=== PATIENT | female | born 1945 | race Caucasian/White ===

== ENCOUNTER → 2016-06-29 | Outpatient (CLI) | payer MEDICARE ==
[~2016-06-29] MED LIST: LIPI20TA PO; TYLE325T5 PO
--- NOTE | 2016-06-30 16:30 | REP ---
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 Comparisons: Comparison CT study of the chest May 11, 2016. TECHNIQUE: 84 minutes following the intravenous injection of a 7.0 mCi dose of F-18 FDG, three-dimensional PET scintigraphy is acquired from the skull base to the proximal thighs. Triplanar noncontrast CT scanning is acquired through the same anatomic range for attenuation correction, and image registration with scan parameters optimized to minimize radiation exposure to the patient. PET scintigraphy and CT datasets were fused and displayed on a workstation with multiplanar and projection display capability. PET/CT Findings: The known large right upper lobe mass is hypermetabolic. Heterogeneous hypermetabolic uptake is seen throughout it. Maximum standard uptake value within the lesion is up to 46. There is hypermetabolic precarinal adenopathy, maximum SUV value in this sharmin focus is 11.4. There is hypermetabolic subcarinal adenopathy with maximum SUV value 20.2. There is a right mid hilar sharmin hypermetabolic uptake maximum SUV value 17.5. There is also hypermetabolic sharmin uptake in the right superior mediastinum adjacent to the esophagus with maximum standard uptake value 19.7. There is faintly increased uptake in a left thyroid nodule with maximum standard uptake value 3.7. Hypermetabolic uptake is noted in the pulmonary nodule seen in the left upper lobe. Standard uptake value within this small nodule is 3.1. There is a small left adrenal hypermetabolic mass consistent with metastasis. Maximum standard uptake value within this 1-1/2 cm lesion is 36.6. No abnormal skeletal hypermetabolic uptake is seen. Impression: Findings consistent with locally advanced bronchogenic malignancy with right hilar, subcarinal, precarinal, right superior mediastinal metastatic adenopathy. There is a contralateral left upper lobe nodule which is small and also hypermetabolic. There is a small hypermetabolic left adrenal mass consistent with a metastatic lesion as well. Equivocal uptake is seen in the left thyroid. Signed by Scotty Nix MD 06/30/2016 09:47 P
== END ==
LOC: M RAD 14:39
PROVIDERS: ATTEND Internal Medicine Pulmonary Disease
DX: C34.11 Malignant neoplasm of upper lobe, right bronchus or lung (principal)
CPT/HCPCS: 78815; A9552

== ENCOUNTER → 2016-07-06 | Outpatient (REF) | payer MEDICARE | LOC: M LAB REF 13:00 | PROVIDERS: ATTEND Internal Medicine Medical Oncology | DX: C34.11 Malignant neoplasm of upper lobe, right bronchus or lung (principal) ==

== ENCOUNTER → 2016-07-13 | Outpatient (CLI) | payer MEDICARE ==
--- NOTE | 2016-07-14 08:17 | REP ---
MRI BRAIN WITHOUT AND WITH CONTRAST: HISTORY: Lung carcinoma. CONTRAST: ProHance 12 mL. Areas of increased signal intensity on T2-weighted images are present in the periventricular and subcortical white matter and guillermo. This represents small vessel ischemic disease. There is no intraparenchymal hemorrhage, infarct, mass or midline shift. There is no abnormal enhancement. The ventricular system and cortical sulci are dilated consistent with minimal volume loss. There is no extracerebral collection. The sinuses are clear. IMPRESSION: 1. Small vessel ischemic disease. 2. Minimal volume loss. Signed by Eyad Deal MD 07/14/2016 08:21 A
== END ==
LOC: M RAD 16:40
PROVIDERS: ATTEND Internal Medicine Medical Oncology
DX: C34.81 Malignant neoplasm of overlapping sites of right bronchus and lung (principal); I73.9 Peripheral vascular disease, unspecified
CPT/HCPCS: 70553; A9576

== ENCOUNTER → 2016-08-11 | Outpatient (REF) | payer MEDICARE | LOC: M LAB REF 17:17 | PROVIDERS: ATTEND Internal Medicine Medical Oncology | DX: C34.90 Malignant neoplasm of unspecified part of unspecified bronchus or lung (principal); Z79.899 Other long term (current) drug therapy ==

== ENCOUNTER 2016-08-23 11:27 | Emergency (ER) | payer MEDICARE ==
[~2016-08-23] VITALS: Ht 172.7 cm; Wt 59.0 kg
[2016-08-23] MEDS ORDERED: NS 1,000 ML IV ONE (11:45)
[2016-08-23 12:16] LABS: BASO % 0.4 % (0.0-1.0); EOS # 0.2 K/mm3 (0.0-0.50); EOS % 1.2 % (0.0-3.0); LARGE UNSTAINED CELL # 0.1 K/mm3 (0.0-0.4); LARGE UNSTAINED CELL % 0.9 % (0.0-4.0); LYMPH # 1.9 K/mm3 (1.5-4.5); LYMPH % 13.5 % (24.0-44.0); MEAN CORPUSCULAR HEMOGLOBIN 28.7 pg (27.0-33.0); MEAN CORPUSCULAR HGB CONC 32.2 g/dl (32.0-36.5); MEAN CORPUSCULAR VOLUME 89.2 fl (80.0-96.0); MONO # 0.8 K/mm3 (0.0-0.8); MONO % 6.3 % (0.0-5.0); NEUTROPHILS # 10.2 K/mm3 (1.8-7.7); NEUTROPHILS % 77.7 % (36.0-66.0); PLATELET COUNT, AUTOMATED 342 k/mm3 (150-450); RED CELL DISTRIBUTION WIDTH 14.1 % (11.5-14.5); WHITE BLOOD COUNT 13.1 K/mm3 (4.0-10.0)
--- NOTE | 2016-08-23 12:28 | REP ---
CHEST, TWO VIEWS: HISTORY: Cough. COMPARISON: 05/04/2016 A mass is present in the right upper lobe. The mass measures 5.9 cm in transverse by 8.3 cm in cephalocaudal dimensions and is slightly decreased in size compared to the previous study. Increased density is present superior and lateral to the mass representing the postobstructive atelectasis or infiltrate. The left lung is clear. The heart is normal in size. The pulmonary vasculature is normal in appearance. The bony structure is intact. IMPRESSION: 1. Right upper lobe mass decreased in size compared to the previous study. 2. There is increased density superior and lateral to the mass consistent with postobstructive atelectasis or infiltrate. Signed by Eyad Deal MD 08/23/2016 12:29 P
[2016-08-23 13:44] LABS: ALBUMIN 3.3 GM/DL (3.2-5.2); ALBUMIN/GLOBULIN RATIO 0.92 (1.00-1.93); ALKALINE PHOSPHATASE 115 U/L (45-117); ALT/SGPT 21 U/L (12-78); ANION GAP 6 MEQ/L (8-16); AST/SGOT 15 U/L (15-37); BILIRUBIN,DIRECT 0.1 MG/DL (0.0-0.2); BILIRUBIN,TOTAL 0.4 MG/DL (0.2-1.0); BLOOD UREA NITROGEN 17 MG/DL (7-18); CALCIUM LEVEL 10.2 MG/DL (8.8-10.2); CARBON DIOXIDE LEVEL 30 MEQ/L (21-32); CHLORIDE LEVEL 103 MEQ/L (98-107); CREATININE FOR GFR 0.63 MG/DL (0.55-1.02); GLOMERULAR FILTRATION RATE > 60.0 (>39); GLUCOSE, FASTING 87 MG/DL (83-110); POTASSIUM SERUM 4.6 MEQ/L (3.5-5.1); SODIUM LEVEL 139 MEQ/L (136-145); TOTAL PROTEIN 6.9 GM/DL (6.4-8.2)
[2016-08-23] MEDS ORDERED: LEVO750T33 PO (14:26)
[2016-08-23] MEDS ORDERED: LevoFLOXacin 750 MG TABLET PO ONE (14:30)
[2016-08-23 15:00] VITALS: BP 172/76
--- NOTE | 2016-08-24 10:30 | ECGEPIP ---
Stationary ECG Study [facility] - ED Test Date: 2016-08-23 Pat Name: JOEL URIBE Department: Room: - Gender: F Asset Protection Assistant: emilee : 1945 Requested By: Romulo Montoya Order Number: [id number] Reading MD: Eugene Calvin Measurements Intervals [place] Rate: 68 P: 68 IA: 145 QRS: 18 QRSD: 88 T: 64 QT: 374 QTc: 400 Interpretive Statements SINUS RHYTHM POSSIBLE LEFT ATRIAL ENLARGEMENT NO PRIORS Electronically Signed On 08-24-2016 10:30:06 EST by Eugene Calvin
== END 2016-08-23 15:33 | disposition home or self-care (01) ==
LOC: M ED 11:55
DX: R50.9 Fever, unspecified (principal); R09.81 Nasal congestion; Z91.040 Latex allergy status; Z88.2 Allergy status to sulfonamides; Z88.8 Allergy status to other drugs, medicaments and biological substances

== ENCOUNTER → 2016-11-03 | Outpatient (REF) | payer MEDICARE ==
[~2016-11-03] MED LIST changes: +LEVO750T33 PO
== END ==
LOC: M LAB REF 16:36
PROVIDERS: ATTEND Internal Medicine Medical Oncology
DX: C34.90 Malignant neoplasm of unspecified part of unspecified bronchus or lung (principal); Z79.899 Other long term (current) drug therapy

== ENCOUNTER → 2016-12-15 | Outpatient (REF) | payer MEDICARE ==
[~2016-12-15] MED LIST changes: +ALPR0.25 PO; +AMLO10TA PO; +COLA100C3 PO; +CYCL10TA PO; +HYDR-3713 PO; +HYDR10T PO
[2016-12-15 17:42] LABS: FREE T4 1.09 NG/DL (0.76-1.46)
== END ==
LOC: M LAB REF 16:27
PROVIDERS: ATTEND Internal Medicine Medical Oncology
DX: C34.90 Malignant neoplasm of unspecified part of unspecified bronchus or lung (principal); E07.9 Disorder of thyroid, unspecified

== ENCOUNTER 2016-12-21 18:32 | Observation (INO) | payer MEDICARE ==
[~2016-12-21] VITALS: Ht 172.7 cm; Wt 76.3 kg
[~2016-12-21 18:32] MED LIST changes: -ALPR0.25 PO; -AMLO10TA PO; -COLA100C3 PO; -CYCL10TA PO; -HYDR-3713 PO; -HYDR10T PO; +LEVO750T13 PO; -LEVO750T33 PO
[2016-12-21] MEDS ORDERED: CYCL10TA PO (18:44)
[2016-12-21] MEDS ORDERED: HYDR-643 PO (18:44)
[2016-12-21] MEDS: MORPHINE 2 MG/ML 1ML SYRINGE IV PRN ×4 (19:46→22:59)
[2016-12-21] MEDS: NS 1,000 ML IV SCH ×2 (19:47→21:33)
[2016-12-21 19:49] LABS: INR 1.04
[2016-12-21 19:52] LABS: BASO # 0.1 K/mm3 (0.0-0.2); BASO % 0.8 % (0.0-1.0); EOS # 0.3 K/mm3 (0.0-0.50); LARGE UNSTAINED CELL # 0.2 K/mm3 (0.0-0.4); LARGE UNSTAINED CELL % 1.9 % (0.0-4.0); LYMPH # 2.9 K/mm3 (1.5-4.5); LYMPH % 32.1 % (24.0-44.0); MEAN CORPUSCULAR HEMOGLOBIN 30.5 pg (27.0-33.0); MEAN CORPUSCULAR HGB CONC 33.4 g/dl (32.0-36.5); MEAN CORPUSCULAR VOLUME 91.3 fl (80.0-96.0); MONO # 0.5 K/mm3 (0.0-0.8); MONO % 5.8 % (0.0-5.0); NEUTROPHILS # 4.8 K/mm3 (1.8-7.7); NEUTROPHILS % 55.4 % (36.0-66.0); PLATELET COUNT, AUTOMATED 275 k/mm3 (150-450); RED CELL DISTRIBUTION WIDTH 14.4 % (11.5-14.5); WHITE BLOOD COUNT 8.6 K/mm3 (4.0-10.0)
[2016-12-21 20:11] LABS: ALBUMIN 3.7 GM/DL (3.2-5.2); ALBUMIN/GLOBULIN RATIO 1.03 (1.00-1.93); ALKALINE PHOSPHATASE 106 U/L (45-117); ALT/SGPT 19 U/L (12-78); ANION GAP 5 MEQ/L (8-16); AST/SGOT 15 U/L (15-37); BILIRUBIN,DIRECT 0.1 MG/DL (0.0-0.2); BILIRUBIN,TOTAL 0.3 MG/DL (0.2-1.0); BLOOD UREA NITROGEN 12 MG/DL (7-18); CALCIUM LEVEL 10.3 MG/DL (8.8-10.2); CARBON DIOXIDE LEVEL 26 MEQ/L (21-32); CHLORIDE LEVEL 109 MEQ/L (98-107); CREATININE FOR GFR 0.63 MG/DL (0.55-1.02); GLOMERULAR FILTRATION RATE > 60.0 (>39); GLUCOSE, FASTING 103 MG/DL (83-110); SODIUM LEVEL 140 MEQ/L (136-145); TOTAL PROTEIN 7.3 GM/DL (6.4-8.2)
[2016-12-21] MEDS ORDERED: ISOVUE-370 76% 100ML VIAL (Q9967) As Ordered ONE (20:45)
--- NOTE | 2016-12-21 21:22 | REP ---
Clinical: Abdominal pain. Technique: Axial contrast enhanced images from the lung bases to the pubic symphysis using 100 ml Isovue 370 intravenous contrast material with coronal and sagittal re-formations. Findings: Lung bases are clear. Visualized heart and pericardium normal. Liver, spleen, pancreas, gallbladder, bilateral adrenal glands and kidneys are normal. The enteric system is without obstruction or acute inflammatory process. Colonic and sigmoid diverticulosis noted without acute diverticulitis. Pelvis demonstrates normal bladder and evidence for prior hysterectomy. No ascites. No free air. No adenopathy. No obvious abdominal pelvic mass lesion. Atherosclerotic changes to the vasculature noted without aneurysm or dissection. Musculoskeletal structures demonstrate degenerative change without focal osseous abnormality. Impression: 1. No acute abdominopelvic pathology appreciated. 2. Colonic diverticulosis without acute diverticulitis. Signed by Charlie Maier MD 12/21/2016 09:14 P
[2016-12-21] MEDS ORDERED: hydrALAZINE INJ 20 MG/ML VIAL IV STA ×2 (21:27→22:36)
[2016-12-21] MEDS ORDERED: HYDR-3713 PO (21:40)
[2016-12-21] MEDS ORDERED: AMLO10TA PO (21:40)
[2016-12-21] MEDS ORDERED: COLA100C5 PO (21:43)
[2016-12-21] MEDS ORDERED: amLODIPine 10 MG TAB PO ONE (22:00)
[2016-12-21] MEDS ORDERED: MIRALAX *UNIT DOSE* 17GM PACKET PO ONE (23:15)
[2016-12-22] MEDS ORDERED: ONDANSETRON 4MG/2ML VIAL (J2405) IV ONE
[2016-12-22] MEDS ORDERED: ALPR0.25 PO (00:01)
--- NOTE | 2016-12-22 00:12 | HPEPDOC ---
General Date of Admission Primary Care Physician: KYE DE LOS SANTOS MD [facility] Chief Complaint The patient is a 71-year-old female admitted with a reason for visit of Lower Abd Pain. Source: Patient, Family Exam Limitations: No limitations Timing/Duration: 24 hours Severity: Moderate History of Present Illness Ms. England is a 71 y/o with past medical history of lung cancer diagnosed in Apr 2016., the pt. states that she has been receiving Keytruda since Apr 2016. She states that one day ago she experienced the onset of right lower quadrant abdominal pain that was sharp in nature with some radiation to her right side and low back. The pt states that when she came to the Ed to be evaluated for this, they noted her to have a high blood pressure. She denies CP, or SOB and denies a history of HTN. She did have some nausea earlier today but denies vomiting, denies fever or chills and denies pain with urination/defecation nor blood in urine or stool. Home Medications Scheduled Amlodipine Besylate (Norvasc) 10 Mg Tab, 10 MG PO DAILY Atorvastatin Calcium (Lipitor) 20 Mg Tab, 40 MG PO DAILY, (Reported) Docusate Sodium (Colace) 100 Mg Cap, 100 MG PO BID Levofloxacin Hemihydrate (Levofloxacin) 750 Mg Tab, 750 MG PO DAILY Scheduled PRN Acetaminophen (Tylenol) 325 Mg Tab, 325 MG PO Q4H PRN for PAIN, (Reported) Acetaminophen/Hydrocodone (Hydrocodone/Acetaminophen 5-325 mg) 1 Tab Tab, 1 TAB PO Q6H PRN for PAIN MDD 4 Cyclobenzaprine HCl (Cyclobenzaprine HCl) 10 Mg Tab, 10 MG PO TID PRN for SPASMS , (Reported) Hydroxyzine HCl (Hydroxyzine HCl) 10 Mg Tab, 10 MG PO TID PRN for ITCHING, ( Reported) Allergies Coded Allergies: Latex (Verified Allergy, Unknown, 09/30/14) Moxifloxacin (Verified Allergy, Unknown, 09/30/14) Prednisone (Verified Allergy, Unknown, 09/30/14) Sulfa Antibiotics (Verified Allergy, Unknown, 09/30/14) Past Medical History Medical History lung cancer dx apr 2016-receiving keytruda Surgical History hysterectomy Family History Significant Family History: No pertinent family hx Social History * Smoker: former Smoker, current smoker (4-6 cigs a day) Alcohol: Denies Drugs: denies Psychosocial History: No pertinent psych hx Review of Symptoms Constitutional: Reports: Malaise, Denies: Chills, Fever Eyes: Denies: Pain, Vision change ENT: Denies: Head Aches Skin: Denies: Rash, Lesions Pulmonary: Denies: Dyspnea, Cough, Pleuritic Chest Pain Cardiovascular: Denies: Chest Pain, Palpitations, Orthopnea Gastrointestinal: Reports: Nausea, Vomiting, Abdominal Pain (RLQ), Denies: Diarrhea, Constipation Genitourinary: Denies: Dysuria, Frequency, Incontinence Neurological: Denies: Weakness, Numbness Psych: Reports: Mood Normal Physical Examination General Exam: Positive: Alert, Moderate Distress Eye Exam: Positive: Conjunctiva & lids normal, Negative: Sclera icteric Neck Exam: Positive: Supple Chest Exam: Positive: Clear to auscultation, Normal air movement, Negative: Rales, Rhonchi, Wheezing Heart Exam: Positive: Rate Normal, Normal S1, Normal S2, Murmurs (systolic) Telemetry: Positive: No significant arrhythmia Abdomen Exam: Positive: Normal bowel sounds, Soft, Tenderness (RLQ), Negative: Hepatospenomegaly, Mass, Hernia Extremity Exam: Negative: Clubbing, Cyanosis, Edema Vital Signs Vital Signs Date Time Temp Pulse Resp B/P (MAP) Pulse Ox O2 Delivery O2 Flow Rate FiO2 12/21/16 23:10 18 97 12/21/16 22:44 188/79 12/21/16 21:43 70 12/21/16 18:33 97.5 Room Air Laboratory Data Labs 24H Laboratory Tests 2 12/21/16 19:30: White Blood Count 8.6, Red Blood Count 4.83, Hemoglobin 14.7, Hematocrit 44.1, Mean Corpuscular Volume 91.3, Mean Corpuscular Hemoglobin 30.5, Mean Corpuscular Hemoglobin Concent 33.4, Red Cell Distribution Width 14.4, Platelet Count 275, Neutrophils (%) (Auto) 55.4, Lymphocytes (%) (Auto) 32.1, Monocytes ( %) (Auto) 5.8H, Eosinophils (%) (Auto) 4.0H, Basophils (%) (Auto) 0.8, Neutrophils # (Auto) 4.8, Lymphocytes # (Auto) 2.9, Monocytes # (Auto) 0.5, Eosinophils # (Auto) 0.3, Basophils # (Auto) 0.1, Large Unclassified Cells % 1.9 , Large Unclassified Cells # 0.2, Prothrombin Time 13.7, Prothromb Time International Ratio 1.04, Anion Gap 5L, Glomerular Filtration Rate > 60.0, Lactic Acid Level 0.9, Calcium Level 10.3H, Aspartate Amino Transf (AST/SGOT) 15 , Alanine Aminotransferase (ALT/SGPT) 19, Alkaline Phosphatase 106, Total Bilirubin 0.3, Direct Bilirubin 0.1, Total Creatine Kinase 41, Creatine Kinase MB 1.0, Creatine Kinase MB Relative Index 2.43, Troponin I < 0.02, Total Protein 7.3, Albumin 3.7, Albumin/Globulin Ratio 1.03, Lipase 204 12/21/16 20:52: Urine Appearance CLEAR, Urine Color STRAW, Urine pH 6.0, Urine Specific [place] 1.005, Urine Protein NEGATIVE, Urine Glucose (UA) NEGATIVE, Urine Ketones NEGATIVE, Urine Urobilinogen 0.2, Urine Bilirubin NEGATIVE, Urine Leukocyte Esterase NEGATIVE, Urine Blood 1+H, Urine Nitrite NEGATIVE, Urine WBC (Auto) 0, Urine RBC (Auto) 5H, Urine Hyaline Casts (Auto) 0, Urine Bacteria (Auto) NEGATIVE, Urine Squamous Epithelial Cells 1, Urine Amorphous Sediment SMALLH, Urine Sperm (Auto) CBC/BMP Laboratory Tests 12/21/16 19:30 Red Blood Count 4.83, Mean Corpuscular Volume 91.3, Mean Corpuscular Hemoglobin 30.5, Mean Corpuscular Hemoglobin Concent 33.4, Red Cell Distribution Width 14.4 , Neutrophils (%) (Auto) 55.4, Lymphocytes (%) (Auto) 32.1, Monocytes (%) (Auto ) 5.8 H, Eosinophils (%) (Auto) 4.0 H, Basophils (%) (Auto) 0.8, Neutrophils # ( Auto) 4.8, Lymphocytes # (Auto) 2.9, Monocytes # (Auto) 0.5, Eosinophils # (Auto ) 0.3, Basophils # (Auto) 0.1 Problems (1) Abdominal pain Status: Acute Response to Treatment: Stable Problem Text: pt states morphine is not helping her pain, will schedule dilaudid therapy CT abdomen neg. for acute pathology-showed some stool and diverticulosis UA showed some RBC, otherwise neg. for infection Zofran for nausea Will consider consulting surgeon for further evaluation of intractable abdominal pain of unknown origin at this time No WBC, no fever. Repeat labs in AM. Fluid therapy NS, pt made NPO (2) DVT prophylaxis Status: Acute Response to Treatment: Stable Problem Text: SCD TEDS Plan / VTE VTE Prophylaxis Ordered?: Yes GME ATTESTATION GME ATTESTATION My preceptor for this patient encounter was physically present in the building during the encounter and was fully available. As needed, all aspects of the patient interview, examination, medical decision making process, and medical care plan development were reviewed and approved by the preceptor. Preceptor is aware and concurs with the plan as stated in the body of this note and will attest to such by his/her cosignature. NADIA VELASQUEZ DO Dec 22, 2016 00:12
[2016-12-22] MEDS ORDERED: CYCLOBENZAPRINE 10 MG TAB PO PRN (00:15)
[2016-12-22] MEDS ORDERED: ALPRAZolam 0.25 MG TAB PO PRN (00:15)
[2016-12-22] MEDS: HYDROmorphone HCL 1 MG/ML SYRINGE (J1170) IV PRN ×5 (00:26→20:17)
[2016-12-22 02:15] VITALS: BP 158/68
[2016-12-22] MEDS: NS 1,000 ML IV SCH ×3 (02:41→18:50)
[2016-12-22 06:00] VITALS: BP 133/63
[2016-12-22 06:28] LABS: BASO % 0.6 % (0.0-1.0); EOS # 0.2 K/mm3 (0.0-0.50); EOS % 3.4 % (0.0-3.0); LARGE UNSTAINED CELL # 0.1 K/mm3 (0.0-0.4); LARGE UNSTAINED CELL % 1.8 % (0.0-4.0); LYMPH # 2.2 K/mm3 (1.5-4.5); LYMPH % 31.5 % (24.0-44.0); MEAN CORPUSCULAR HEMOGLOBIN 31.4 pg (27.0-33.0); MEAN CORPUSCULAR VOLUME 92.2 fl (80.0-96.0); MONO # 0.4 K/mm3 (0.0-0.8); MONO % 6.5 % (0.0-5.0); NEUTROPHILS # 3.7 K/mm3 (1.8-7.7); NEUTROPHILS % 56.2 % (36.0-66.0); PLATELET COUNT, AUTOMATED 247 k/mm3 (150-450); RED CELL DISTRIBUTION WIDTH 14.4 % (11.5-14.5); WHITE BLOOD COUNT 6.6 K/mm3 (4.0-10.0)
[2016-12-22 06:45] LABS: ANION GAP 4 MEQ/L (8-16); BLOOD UREA NITROGEN 9 MG/DL (7-18); CALCIUM LEVEL 9.9 MG/DL (8.8-10.2); CARBON DIOXIDE LEVEL 28 MEQ/L (21-32); CHLORIDE LEVEL 111 MEQ/L (98-107); GLOMERULAR FILTRATION RATE > 60.0 (>39); GLUCOSE, FASTING 100 MG/DL (83-110); SODIUM LEVEL 143 MEQ/L (136-145)
--- NOTE | 2016-12-22 07:36 | REP ---
Clinical: Pain. Technique: Neutral and frog lateral views of the right hip. Findings: Two views of the right hip demonstrates no acute fracture dislocation. Skeletal structures, joint spaces, and surrounding soft tissues are essentially normal for age. No overt osteoarthritic degenerative changes are appreciated. Impression: Normal, age-appropriate right hip radiographs. Signed by Charlie Maier MD 12/22/2016 07:27 A
[2016-12-22] MEDS ORDERED: amLODIPine 10 MG TAB PO SCH (09:00)
[2016-12-22] MEDS ORDERED: amLODIPine 10 MG TAB PO ONE (09:00)
[2016-12-22] MEDS: ATORVASTATIN 20 MG TAB PO SCH (09:05)
[2016-12-22] MEDS ORDERED: GOLYTELY SOLN 4000 ML BTL PO ONE (10:00)
[2016-12-22] MEDS: ONDANSETRON 4MG/2ML VIAL (J2405) IV PRN ×2 (11:51→22:25)
[2016-12-22] MEDS: ACETAMINOPHEN TAB 650MG DOSE (2X325MG) PO PRN ×2 (13:11→22:27)
--- NOTE | 2016-12-22 13:37 | CR ---
DATE OF CONSULTATION: 12/22/2016 CHIEF COMPLAINT: Right lower quadrant pain. HISTORY OF PRESENT ILLNESS: The patient is a 71-year-old female who presents to the emergency room with right lower quadrant abdominal pain. This started late on Monday. It was present throughout the day on Monday. She finally came in to the emergency room complaining of this pain. Labs were normal. Vitals were normal. CT of abdomen and pelvis was also normal. However, she had difficulty with hypertension with a systolic in the 190s. Because of that, she was admitted to the medicine service. I was asked to consult based off of this lower abdominal pain that was nonspecific and to help rule out possible early appendicitis. This morning, she denies any nausea or vomiting. No fevers or chills. No problems with diarrhea or constipation. She has never had problems with blood in her stool. No pain with bowel movements or urination. No improvement of her pain with bowel movements or urination as well. No family history of colon diseases or cancers. No recent trauma. No recent illnesses. No sick contacts. No change in activity or diet. The pain is present, but it is very minimal when she is laying flat, but when she sits upright she gets a sharp stabbing pain in her right lower quadrant. She denies any history of prior colonoscopy. She has had a hysterectomy as well as a recently diagnosed lung cancer last April and she is going through therapy for that currently. PAST MEDICAL HISTORY: 1. Lung cancer. 2. Hypertension. PAST SURGICAL HISTORY: Hysterectomy. FAMILY HISTORY: Noncontributory. SOCIAL HISTORY: Smokes four to six cigarettes a day. Denies any drug or alcohol abuse. ALLERGIES: - LATEX - MOXIFLOXACIN - PREDNISONE - SULFA DRUGS HOME MEDICATIONS: Please see med record. REVIEW OF SYSTEMS: Pertinent positives and negatives in history of present illness (HPI). PHYSICAL EXAMINATION: Generally, alert and oriented times three with no acute stress. Vitals: Temperature 98.3, pulse 76, respirations 16, blood pressure 133/63, pulse oximetry 93% in room air. HEENT: Pupils equally round and react to light and accommodation. Heart: S1, S2. Regular rate and rhythm. Lungs: Clear to auscultation bilaterally. Abdomen: Soft. Mild tenderness to palpation right lower quadrant over the area of McBurney's point. There is some slight thickening of the tissue in this area. No discrete masses identified. No hernias identified. Bowel sounds positive. Extremities: No clubbing, cyanosis or edema. LABORATORY DATA: White count yesterday 8.6 and down to 6.6 today, hemoglobin 14.8, platelets 247, potassium 4, calcium 9.9. IMAGING STUDIES: CT of abdomen and pelvis was negative for any acute abdominal pelvic pathology. Colonic diverticulosis without diverticulitis. ASSESSMENT/PLAN: The patient is a 71-year-old female with nonspecific right lower quadrant abdominal pain. It does not appear to be appendicitis by history or exam. The pain is more positional. It is likely musculoskeletal in nature. She was lifting a lot of gallon jugs of water this weekend with a lot of lifting and twisting. She may have caused some lower abdominal muscle strain. Recommendation at this time is to place back on a clear liquid diet and use Tylenol and Motrin as needed for pain. Also recommend getting up and ambulating, stretching the area. Since she has not had a colonoscopy to rule out anything intraluminally, would recommend we get the colonoscopy as an inpatient since she is already here. I have discussed this with her. We will plan on bowel prep today and colonoscopy tomorrow. As long as colonoscopy is negative, will likely recommend discharge home and follow-up outpatient as needed.
--- NOTE | 2016-12-22 15:20 | IPNPDOC ---
Text Note Date of Service The patient was seen on 12/22/16. NOTE Subjective: Pt states she has RLQ sharp pain. Was lifting water jugs with twisting motions. States pain is sharp, non radiating. No dysuria. No back pain. Objective: Vitals: (see below) General: No acute distress, laying comfortably in bed. HEENT: Moist mucous membranes. Neck: No JVD or lymphadenopathy Cardiac: RRR, No murmurs Pulm: Clear to auscultation b/l. No wheezing, rhonchi Abd: Mild TTP RLQ. No rebound/guarding/rigidity. ND + BS Ext: No edema or cyanosis. Strength 5/5 BUE and BLE. No reproducible pain on internal/external rotation of RLE. Distal pulses intact. Labs (see below) Images: Right hip 12/21/16 Impression: Normal, age-appropriate right hip radiographs. CT Abd/pelvis 12/21/16 Impression: 1. No acute abdominopelvic pathology appreciated. 2. Colonic diverticulosis without acute diverticulitis. Assessment/Plan 1. Abd pain - likely musculoskeletal in nature given history. CT Abd /pelvis negative. Labs relatively normal. Scheduled for colonoscopy tomorrow with Dr. Crane. UA negative. 2. Lung cancer on da, last dose last . Oupt oncology f/u. 3. H/o Ovarian cysts 4. H/o HYST. DVT prophy: SCDs VS,Fishbone, I+O VS, Fishbone, I+O Laboratory Tests 12/21/16 19:30 Red Blood Count 4.83, Mean Corpuscular Volume 91.3, Mean Corpuscular Hemoglobin 30.5, Mean Corpuscular Hemoglobin Concent 33.4, Red Cell Distribution Width 14.4 , Neutrophils (%) (Auto) 55.4, Lymphocytes (%) (Auto) 32.1, Monocytes (%) (Auto ) 5.8 H, Eosinophils (%) (Auto) 4.0 H, Basophils (%) (Auto) 0.8, Neutrophils # ( Auto) 4.8, Lymphocytes # (Auto) 2.9, Monocytes # (Auto) 0.5, Eosinophils # (Auto ) 0.3, Basophils # (Auto) 0.1 12/22/16 06:07 Red Blood Count 4.72, Mean Corpuscular Volume 92.2, Mean Corpuscular Hemoglobin 31.4, Mean Corpuscular Hemoglobin Concent 34.0, Red Cell Distribution Width 14.4 , Neutrophils (%) (Auto) 56.2, Lymphocytes (%) (Auto) 31.5, Monocytes (%) (Auto ) 6.5 H, Eosinophils (%) (Auto) 3.4 H, Basophils (%) (Auto) 0.6, Neutrophils # ( Auto) 3.7, Lymphocytes # (Auto) 2.2, Monocytes # (Auto) 0.4, Eosinophils # (Auto ) 0.2, Basophils # (Auto) 0.0, Calcium Level 9.9 Vital Signs Date Time Temp Pulse Resp B/P (MAP) Pulse Ox O2 Delivery O2 Flow Rate FiO2 12/22/16 15:04 16 12/22/16 10:00 Room Air 97.0 12/22/16 06:00 98.3 76 133/63 (86) 93 I&O- Last 24 Hours up to 6 AM 12/22/16 05:59 Intake Total 1000 ml Output Total 0 ml Balance 1000 ml BERNIE SLAUGHTER MD Dec 22, 2016 15:20
[2016-12-22] MEDS ORDERED: BISACODYL ENEMA 10 MG/30 ML PR ONE (18:45)
[2016-12-22 22:00] VITALS: BP 158/68
[2016-12-23] MEDS: HYDROmorphone HCL 1 MG/ML SYRINGE (J1170) IV PRN ×3 (01:45→11:02)
[2016-12-23] MEDS: NS 1,000 ML IV SCH ×2 (04:27→18:13)
[2016-12-23 06:00] VITALS: BP 144/65
[2016-12-23 06:39] LABS: BASO % 0.6 % (0.0-1.0); EOS # 0.2 K/mm3 (0.0-0.50); LARGE UNSTAINED CELL # 0.1 K/mm3 (0.0-0.4); LARGE UNSTAINED CELL % 1.9 % (0.0-4.0); LYMPH # 1.2 K/mm3 (1.5-4.5); MEAN CORPUSCULAR HEMOGLOBIN 31.3 pg (27.0-33.0); MEAN CORPUSCULAR VOLUME 92.2 fl (80.0-96.0); MONO # 0.3 K/mm3 (0.0-0.8); MONO % 6.5 % (0.0-5.0); NEUTROPHILS # 3.5 K/mm3 (1.8-7.7); PLATELET COUNT, AUTOMATED 211 k/mm3 (150-450); RED CELL DISTRIBUTION WIDTH 14.1 % (11.5-14.5); WHITE BLOOD COUNT 5.3 K/mm3 (4.0-10.0)
--- NOTE | 2016-12-23 07:23 | ECGEPIP ---
Stationary ECG Study [facility] - ED Test Date: 2016-12-21 Pat Name: JOEL URIBE Department: Room: [place] [address] Gender: F Assistant Manager Retail: sienna : 1945 Requested By: NIC REBOLLEDO Order Number: [id number] Reading MD: Damaris Marquez Measurements Intervals [place] Rate: 58 P: 74 RI: 154 QRS: 29 QRSD: 101 T: 66 QT: 413 QTc: 407 Interpretive Statements SINUS BRADYCARDIA DECREASED RATE 08/23/16 Electronically Signed On 12-23-2016 7:22:41 EDT by Damaris Marquez
[2016-12-23 07:39] LABS: ANION GAP 7 MEQ/L (8-16); BLOOD UREA NITROGEN 6 MG/DL (7-18); CALCIUM LEVEL 9.6 MG/DL (8.8-10.2); CARBON DIOXIDE LEVEL 25 MEQ/L (21-32); CHLORIDE LEVEL 109 MEQ/L (98-107); CREATININE FOR GFR 0.46 MG/DL (0.55-1.02); GLOMERULAR FILTRATION RATE > 60.0 (>39); GLUCOSE, FASTING 84 MG/DL (83-110); POTASSIUM SERUM 3.6 MEQ/L (3.5-5.1); SODIUM LEVEL 141 MEQ/L (136-145)
[2016-12-23] MEDS ORDERED: FLEET ENEMA PR ONE ×2 (08:00→10:00)
[2016-12-23] MEDS: ONDANSETRON 4MG/2ML VIAL (J2405) IV PRN (09:30)
[2016-12-23] MEDS: ATORVASTATIN 20 MG TAB PO SCH (09:31)
[2016-12-23] MEDS: ACETAMINOPHEN TAB 650MG DOSE (2X325MG) PO PRN (11:34)
--- NOTE | 2016-12-23 15:00 | IPNPDOC ---
Text Note Date of Service The patient was seen on 12/23/16. NOTE Subjective: Abd pain resolved. Objective: Vitals: (see below) General: No acute distress, laying comfortably in bed. HEENT: Moist mucous membranes. Neck: No JVD or lymphadenopathy Cardiac: RRR, No murmurs Pulm: Clear to auscultation b/l. No wheezing, rhonchi Abd:NT/ ND + BS Ext: No edema or cyanosis. Strength 5/5 BUE and BLE. No reproducible pain on internal/external rotation of RLE. Distal pulses intact. Labs (see below) Images: Right hip 12/21/16 Impression: Normal, age-appropriate right hip radiographs. CT Abd/pelvis 12/21/16 Impression: 1. No acute abdominopelvic pathology appreciated. 2. Colonic diverticulosis without acute diverticulitis. Assessment/Plan 1. Abd pain - likely musculoskeletal in nature given history. CT Abd /pelvis negative. Labs relatively normal. Scheduled for colonoscopy today with Dr. Crane. UA negative. ? Related to Keyruda side effect as it has been shown to cause non specific abd pain 13%. 2. Lung cancer on Keyruda, last dose last . Oupt oncology f/u. 3. H/o Ovarian cysts 4. H/o HYST. DVT prophy: SCDs VS,Fishbone, I+O VS, Fishbone, I+O Laboratory Tests 12/23/16 06:18 Red Blood Count 4.48, Mean Corpuscular Volume 92.2, Mean Corpuscular Hemoglobin 31.3, Mean Corpuscular Hemoglobin Concent 34.0, Red Cell Distribution Width 14.1 , Neutrophils (%) (Auto) 67.0 H, Lymphocytes (%) (Auto) 21.0 L, Monocytes (%) ( Auto) 6.5 H, Eosinophils (%) (Auto) 3.0, Basophils (%) (Auto) 0.6, Neutrophils # (Auto) 3.5, Lymphocytes # (Auto) 1.2 L, Monocytes # (Auto) 0.3, Eosinophils # (Auto) 0.2, Basophils # (Auto) 0.0, Calcium Level 9.6 Vital Signs Date Time Temp Pulse Resp B/P (MAP) Pulse Ox O2 Delivery O2 Flow Rate FiO2 12/23/16 11:46 16 12/23/16 08:15 95 Room Air 12/23/16 06:00 98.9 75 144/65 (91) 12/22/16 10:00 97.0 I&O- Last 24 Hours up to 6 AM 12/23/16 06:00 Intake Total 3500 ml Output Total 1600 ml Balance 1900 ml BERNIE SLAUGHTER MD Dec 23, 2016 15:00
[2016-12-23] MEDS ORDERED: diphenhydrAMINE INJ 50MG/ML VIAL (J1200) IM ONE (15:30)
[2016-12-23] MEDS ORDERED: PROPOFOL 200 MG/20 ML VIAL As Ordered ONE (16:16)
[2016-12-23] MEDS ORDERED: LIDOCAINE 2% INJ 100 MG/5 ML SDV (FOR ANES.) As Ordered ONE (16:16)
--- NOTE | 2016-12-23 16:36 | ROOR ---
Patient Name: Lora England Procedure Date: 12/23/2016 4:10 PM Date of : 1945 Age: 71 Room: [facility] Gender: Female Note Status: Finalized Procedure: Colonoscopy Indications: Abdominal pain in the right lower quadrant Providers: DO Sohan Perry MD: Ezra Muhammad MD Requesting Provider: Medicines: Propofol per Anesthesia Complications: No immediate complications. Estimated blood loss: Minimal. Procedure: Pre-Anesthesia Assessment: - Prior to the procedure, a History and Physical was performed, and patient medications and allergies were reviewed. The patient is competent. The risks and benefits of the procedure and the sedation options and risks were discussed with the patient. All questions were answered and informed consent was obtained. Patient identification and proposed procedure were verified by the physician, the nurse, the anesthesiologist and the downstream biomanufacturing technician in the endoscopy suite. Mental Status Examination: alert and oriented. Airway Examination: normal oropharyngeal airway and neck mobility. Respiratory Examination: clear to auscultation. CV Examination: normal. Prophylactic Antibiotics: The patient does not require prophylactic antibiotics. Prior Anticoagulants: The patient has taken no previous anticoagulant or antiplatelet agents. ASA Grade Assessment: II - A patient with mild systemic disease. After reviewing the risks and benefits, the patient was deemed in satisfactory condition to undergo the procedure. The anesthesia plan was to use monitored anesthesia care (MAC). Immediately prior to administration of medications, the patient was re-assessed for adequacy to receive sedatives. The heart rate, respiratory rate, oxygen saturations, blood pressure, adequacy of pulmonary ventilation, and response to care were monitored throughout the procedure. The physical status of the patient was re-assessed after the procedure. The Colonoscope was introduced through the anus and advanced to the cecum, identified by appendiceal orifice and ileocecal valve. The colonoscopy was performed without difficulty. The patient tolerated the procedure well. Findings: Multiple small and large-mouthed diverticula were found in the sigmoid colon. A 5 mm polyp was found in the sigmoid colon. The polyp was hyperplastic. The polyp was removed with a hot snare. Resection and retrieval were complete. Four hyperplastic polyps were found in the recto-sigmoid colon. The polyps were less than 5 mm in size. These polyps were removed with a cold biopsy forceps. Resection and retrieval were complete. The exam was otherwise without abnormality on direct and retroflexion views. Impression: - Diverticulosis in the sigmoid colon. - One 5 mm polyp in the sigmoid colon, removed with a hot snare. Resected and retrieved. - Four less than 5 mm polyps at the recto-sigmoid colon, removed with a cold biopsy forceps. Resected and retrieved. - The examination was otherwise normal on direct and retroflexion views. Recommendation: - Return patient to hospital [facility] for ongoing care. - Resume regular diet. Bladimir Crane DO 12/23/2016 4:36:06 PM This report has been signed electronically. Number of Addenda: 0 Note Initiated On: 12/23/2016 4:10 PM Estimated Blood Loss: Estimated blood loss was minimal.
[2016-12-23 22:00] VITALS: BP 158/66
[2016-12-23] MEDS: KETOROLAC 30 MG/ML VIAL (J1885) IV PRN (22:35)
[2016-12-24] MEDS: NS 1,000 ML IV SCH (02:17)
[2016-12-24 05:47] LABS: BASO % 0.5 % (0.0-1.0); EOS # 0.1 K/mm3 (0.0-0.50); EOS % 1.8 % (0.0-3.0); LARGE UNSTAINED CELL # 0.1 K/mm3 (0.0-0.4); LARGE UNSTAINED CELL % 1.3 % (0.0-4.0); LYMPH # 0.8 K/mm3 (1.5-4.5); LYMPH % 14.2 % (24.0-44.0); MEAN CORPUSCULAR HEMOGLOBIN 30.7 pg (27.0-33.0); MEAN CORPUSCULAR HGB CONC 34.2 g/dl (32.0-36.5); MEAN CORPUSCULAR VOLUME 89.9 fl (80.0-96.0); MONO # 0.3 K/mm3 (0.0-0.8); MONO % 6.6 % (0.0-5.0); NEUTROPHILS # 3.8 K/mm3 (1.8-7.7); NEUTROPHILS % 75.6 % (36.0-66.0); PLATELET COUNT, AUTOMATED 213 k/mm3 (150-450)
[2016-12-24 06:00] VITALS: BP 180/68
[2016-12-24 06:02] LABS: ANION GAP 6 MEQ/L (8-16); BLOOD UREA NITROGEN 5 MG/DL (7-18); CALCIUM LEVEL 9.5 MG/DL (8.8-10.2); CARBON DIOXIDE LEVEL 26 MEQ/L (21-32); CHLORIDE LEVEL 106 MEQ/L (98-107); CREATININE FOR GFR 0.49 MG/DL (0.55-1.02); GLOMERULAR FILTRATION RATE > 60.0 (>39); GLUCOSE, FASTING 91 MG/DL (83-110); POTASSIUM SERUM 3.4 MEQ/L (3.5-5.1); SODIUM LEVEL 138 MEQ/L (136-145)
[2016-12-24] MEDS: KETOROLAC 30 MG/ML VIAL (J1885) IV PRN (06:16)
[2016-12-24] MEDS ORDERED: POTASSIUM CHLORIDE 10 MEQ SR TABLET PO ONE (07:45)
[2016-12-24] MEDS ORDERED: BENA2CRE3 EXT (09:00)
[2016-12-24] MEDS ORDERED: AMLO25TA PO (09:02)
[2016-12-24 09:34] VITALS: BP 180/68
[2016-12-24] MEDS: ATORVASTATIN 20 MG TAB PO SCH (09:34)
--- NOTE | 2016-12-24 12:51 | DS.PDOC ---
Discharge Summary General Date of Admission Dec 21, 2016 at 18:33 Date of Discharge 12/24/16 Attending Physician: BERNIE SLAUGHTER MD Specialist/Consultants Involve: STACIE QUESADA DO Discharge Summary PROCEDURES PERFORMED DURING STAY: Colonoscopy ADMITTING/DISCHARGE DIAGNOSES: 1. Musculoskeletal abdominal pain 2. Lung cancer on [facility] 3. Allergic rash possibly secondary to Dilaudid 4. History of ovarian cysts 5. History of hysterectomy COMPLICATIONS/CHIEF COMPLAINT: Abdominal Pain. HISTORY OF PRESENT ILLNESS/HOSPITAL COURSE: . This is a 71-year-old male past history of lung cancer on [facility] who presents complaining of right lower quadrant pain. Patient was carrying some heavy water jugs with twisting motions. Respiratory admission. Patient then started to develop right lower quadrant sharp pain. Patient did have a CAT scan and pelvis which was relatively unremarkable. Patient was evaluated by surgery and subsequently had a colonoscopy with a few polyps noted that were sent for biopsy. Patient was cleared by surgery for discharge home. Patient was also noted to have the rash on her right buttock as right inner thigh which is improving since yesterday. Dilaudid was discontinued. Questionable whether this was the cause. The patient was started on Benadryl cream and advised to come to the ED if the rash does worsen. Prior to discharge patient was thought to have elevated blood pressure, and started on amlodipine. Patient is to follow-up with her primary care physician regarding her hypertension as well. DISCHARGE MEDICATIONS: Please see below. Vitals: (see below) General: No acute distress, laying comfortably in bed. HEENT: Moist mucous membranes. Neck: No JVD or lymphadenopathy Cardiac: RRR, No murmurs Pulm: Clear to auscultation b/l. No wheezing, rhonchi Abd:NT/ ND + BS Ext: No edema or cyanosis. Strength 5/5 BUE and BLE. No reproducible pain on internal/external rotation of RLE. Distal pulses intact. Right buttock/ right thigh with mild blotchy red rash. Non blanching, non pruritic. Female manager database administration present. ALLERGIES: Please see below. PHYSICAL EXAMINATION ON DISCHARGE: LABORATORY DATA: Please see below. IMAGING: Right hip 12/21/16 Impression: Normal, age-appropriate right hip radiographs. CT Abd/pelvis 12/21/16 Impression: 1. No acute abdominopelvic pathology appreciated. 2. Colonic diverticulosis without acute diverticulitis. PROGNOSIS: Fair ACTIVITY: As tolerated. DIET: Regular DISCHARGE PLAN/DISPOSITION: 01 Home, Self-Care. DISCHARGE INSTRUCTIONS: 1. Follow-up with PCP in 1-2 weeks. Return to the ED if abdominal pain or rash worsens. DISCHARGE CONDITION: Stable. TIME SPENT ON DISCHARGE: Greater than 30 minutes. Vital Signs/I&Os Vital Signs Date Time Temp Pulse Resp B/P (MAP) Pulse Ox O2 Delivery O2 Flow Rate FiO2 12/24/16 09:34 68 180/68 12/24/16 06:00 99.5 18 95 Room Air 12/22/16 10:00 97.0 I&O- Last 24 Hours up to 6 AM 12/24/16 06:00 Intake Total 1520 ml Output Total 0 ml Balance 1520 ml Laboratory Data Labs 24H Laboratory Tests 2 12/24/16 05:36: White Blood Count 5.0, Red Blood Count 4.54, Hemoglobin 13.9, Hematocrit 40.8, Mean Corpuscular Volume 89.9, Mean Corpuscular Hemoglobin 30.7, Mean Corpuscular Hemoglobin Concent 34.2, Red Cell Distribution Width 14.0, Platelet Count 213, Neutrophils (%) (Auto) 75.6H, Lymphocytes (%) (Auto) 14.2L, Monocytes (%) (Auto) 6.6H, Eosinophils (%) (Auto) 1.8, Basophils (%) (Auto) 0.5 , Neutrophils # (Auto) 3.8, Lymphocytes # (Auto) 0.8L, Monocytes # (Auto) 0.3, Eosinophils # (Auto) 0.1, Basophils # (Auto) 0.0, Large Unclassified Cells % 1.3 , Large Unclassified Cells # 0.1, Anion Gap 6L, Glomerular Filtration Rate > 60.0, Blood Urea Nitrogen 5L, Creatinine 0.49L, Sodium Level 138, Potassium Level 3.4L, Chloride Level 106, Carbon Dioxide Level 26, Calcium Level 9.5 CBC/BMP Laboratory Tests 12/24/16 05:36 Red Blood Count 4.54, Mean Corpuscular Volume 89.9, Mean Corpuscular Hemoglobin 30.7, Mean Corpuscular Hemoglobin Concent 34.2, Red Cell Distribution Width 14.0 , Neutrophils (%) (Auto) 75.6 H, Lymphocytes (%) (Auto) 14.2 L, Monocytes (%) ( Auto) 6.6 H, Eosinophils (%) (Auto) 1.8, Basophils (%) (Auto) 0.5, Neutrophils # (Auto) 3.8, Lymphocytes # (Auto) 0.8 L, Monocytes # (Auto) 0.3, Eosinophils # (Auto) 0.1, Basophils # (Auto) 0.0, Calcium Level 9.5 Discharge Medications Scheduled Amlodipine Besylate (Norvasc) 2.5 Mg Tab, 2.5 MG PO DAILY Atorvastatin Calcium (Lipitor) 20 Mg Tab, 40 MG PO DAILY, (Reported) Diphenhydramine HCl (Benadryl 1-0.1 %) 30 Gm Cream, 30 GM EXT BID Apply to left buttock and left thigh. Scheduled PRN Acetaminophen (Tylenol) 325 Mg Tab, 325 MG PO Q4H PRN for PAIN, (Reported) Alprazolam (Alprazolam) 0.25 Mg Tab, 0.25 MG PO TID PRN for ANXIETY, (Reported) Cyclobenzaprine HCl (Cyclobenzaprine HCl) 10 Mg Tab, 10 MG PO TID PRN for SPASMS , (Reported) Hydroxyzine HCl (Hydroxyzine HCl) 10 Mg Tab, 10 MG PO TID PRN for ITCHING, ( Reported) Allergies Coded Allergies: Latex (Verified Allergy, Unknown, 09/30/14) Moxifloxacin (Verified Allergy, Unknown, 09/30/14) Prednisone (Verified Allergy, Unknown, 09/30/14) Sulfa Antibiotics (Verified Allergy, Unknown, 09/30/14) BERNIE SLAUGHTER MD Dec 24, 2016 12:51
== END 2016-12-24 10:20 | disposition home or self-care (01) ==
LOC: M ED 18:32 → M ED INP 18:33 → M MS5PR 12-22 02:15
PROVIDERS: ADMIT Hospitalist; ATTEND Internal Medicine
DX: R10.31 Right lower quadrant pain (principal); K57.30 Diverticulosis of large intestine without perforation or abscess without bleeding; D12.5 Benign neoplasm of sigmoid colon; C34.90 Malignant neoplasm of unspecified part of unspecified bronchus or lung; R21 Rash and other nonspecific skin eruption; I10 Essential (primary) hypertension; Z87.42 Personal history of other diseases of the female genital tract; Z79.899 Other long term (current) drug therapy; Z91.040 Latex allergy status; Z88.1 Allergy status to other antibiotic agents; Z88.2 Allergy status to sulfonamides; Z88.8 Allergy status to other drugs, medicaments and biological substances; F17.210 Nicotine dependence, cigarettes, uncomplicated
CPT/HCPCS: 36415; 45380; 45385; 73502; 74177; 80048; 80076; 81001; 82550; 82553; 83605; 83690; 84484; 85025; 85610; 88305; 93005; 93041; 96361; 96372; 96374; 96375; 96376; 99284; G0378; J1170; J1200; J1885; J2405; Q9967

== ENCOUNTER → 2017-01-05 | Outpatient (REF) | payer MEDICARE ==
[~2017-01-05] MED LIST changes: +ALPR0.25 PO; +AMLO10TA PO; +AMLO25TA PO; +BENA2CRE3 EXT; +COLA100C5 PO; +CYCL10TA PO; +HYDR-3713 PO; +HYDR-643 PO
[2017-01-05 15:14] LABS: IONIZED CALCIUM 5.6 MG/DL (4.5-5.3)
== END ==
LOC: M LAB REF 15:00
PROVIDERS: ATTEND Internal Medicine Medical Oncology
DX: C34.90 Malignant neoplasm of unspecified part of unspecified bronchus or lung (principal); E07.9 Disorder of thyroid, unspecified

== ENCOUNTER → 2017-01-26 | Outpatient (REF) | payer MEDICARE ==
[2017-01-27 08:22] LABS: THYROXINE (T4) 10.8 UG/DL (4.5-12.0)
== END ==
LOC: M LAB REF 16:19
PROVIDERS: ATTEND Internal Medicine Medical Oncology
DX: C34.90 Malignant neoplasm of unspecified part of unspecified bronchus or lung (principal); Z79.899 Other long term (current) drug therapy

== ENCOUNTER → 2017-12-05 | Outpatient (REF) | payer MEDICARE, MEDICAID ==
[2017-12-05 14:11] LABS: FREE T4 1.08 NG/DL (0.76-1.46)
== END ==
LOC: M LAB REF 13:11
DX: Z01.818 Encounter for other preprocedural examination (principal); Z51.81 Encounter for therapeutic drug level monitoring; Z79.899 Other long term (current) drug therapy
CPT/HCPCS: 84443

== ENCOUNTER → 2017-12-05 | Outpatient (REF) | payer MEDICARE, MEDICAID ==
[2017-12-05 15:52] LABS: INR 0.93; PROTHROMBIN TIME 12.5 SECONDS (12.4-14.5)
[2017-12-05 15:53] LABS: PARTIAL THROMBOPLASTIN TIME 31.6 SECONDS (26.8-37.9)
== END ==
LOC: M LAB REF 15:20
DX: Z01.818 Encounter for other preprocedural examination (principal); Z51.81 Encounter for therapeutic drug level monitoring; Z79.899 Other long term (current) drug therapy

== ENCOUNTER → 2017-12-08 | Outpatient (CLI) | payer MEDICARE, MEDICAID ==
[~2017-12-08] MED LIST changes: -ALPR0.25 PO; -AMLO10TA PO; -AMLO25TA PO; -BENA2CRE3 EXT; -COLA100C5 PO; -CYCL10TA PO; +GASTROGRAFIN SOLUTION 30ML (Q9963) As Ordered; -HYDR-3713 PO; -HYDR-643 PO; +ISOVUE-370 76% 100ML VIAL (Q9967) As Ordered; -LEVO750T13 PO; -LIPI20TA PO; -TYLE325T5 PO
== END ==
LOC: M RAD 13:22
DX: C34.90 Malignant neoplasm of unspecified part of unspecified bronchus or lung (principal); Z53.9 Procedure and treatment not carried out, unspecified reason (principal)
CPT/HCPCS: Q9963

== ENCOUNTER → 2017-12-12 | Outpatient (CLI) | payer MEDICARE, MEDICAID ==
[~2017-12-12] MED LIST changes: -GASTROGRAFIN SOLUTION 30ML (Q9963) As Ordered; -ISOVUE-370 76% 100ML VIAL (Q9967) As Ordered; +PROHANCE 279.3MG/ML 15ML VIAL (A9576) As Ordered
== END ==
LOC: M RAD 12:26
DX: Z85.118 Personal history of other malignant neoplasm of bronchus and lung (principal)
CPT/HCPCS: A9576

== ENCOUNTER → 2018-01-18 | Outpatient (CLI) | payer MEDICARE ==
[~2018-01-18] MED LIST changes: +GASTROGRAFIN SOLUTION 30ML (Q9963) As Ordered; +ISOVUE-370 76% 100ML VIAL (Q9967) As Ordered; -PROHANCE 279.3MG/ML 15ML VIAL (A9576) As Ordered
== END ==
LOC: M RAD 14:10
DX: C34.11 Malignant neoplasm of upper lobe, right bronchus or lung (principal)
CPT/HCPCS: Q9963

== ENCOUNTER 2018-02-09 11:02 | Inpatient (IN) | payer MEDICARE ==
[2018-02-09 11:37] LABS: BASO # 0.1 10^3/uL (0.0-0.2); BASO % 0.3 % (0.0-1.0); EOS # 0.2 10^3/uL (0.0-0.50); HEMATOCRIT 39.9 % (36.0-47.0); HEMOGLOBIN 13.5 g/dl (12.0-15.5); IMMATURE GRANULOCYTE % 0.6 % (0-3.0); LYMPH # 1.6 10^3/uL (1.5-4.5); LYMPH % 10.1 % (24.0-44.0); MEAN CORPUSCULAR HEMOGLOBIN 31.7 pg (27.0-33.0); MEAN CORPUSCULAR HGB CONC 33.8 g/dl (32.0-36.5); MEAN CORPUSCULAR VOLUME 93.7 fl (80.0-96.0); MONO # 1.2 10^3/uL (0.0-0.8); MONO % 7.6 % (0.0-5.0); NEUTROPHILS # 12.4 10^3/uL (1.8-7.7); NEUTROPHILS % 80.4 % (36.0-66.0); PLATELET COUNT, AUTOMATED 277 10^3/uL (150-450); RED BLOOD COUNT 4.26 10^6/uL (4.00-5.40); RED CELL DISTRIBUTION WIDTH 12.5 % (11.5-14.5); WHITE BLOOD COUNT 15.4 10^3/uL (4.0-10.0)
[2018-02-09 11:52] LABS: LACTIC ACID SEPSIS PROTOCOL 1.3 MMOL/L (0.4-2.0)
[2018-02-09 11:55] LABS: ANION GAP 9 MEQ/L (8-16); BLOOD UREA NITROGEN 12 MG/DL (7-18); CALCIUM LEVEL 10.7 MG/DL (8.8-10.2); CARBON DIOXIDE LEVEL 25 MEQ/L (21-32); CHLORIDE LEVEL 105 MEQ/L (98-107); CK-MB VALUE MASS < 1.0 NG/ML (<3.6); CPK CREATINE PHOSPHOKINASE 75 U/L (26-192); CREATININE FOR GFR 0.62 MG/DL (0.55-1.30); GLOMERULAR FILTRATION RATE > 60.0 (>39); GLUCOSE, FASTING 115 MG/DL (70-100); MB/CK RELATIVE INDEX 1.33 (< OR =4); POTASSIUM SERUM 4.5 MEQ/L (3.5-5.1); SODIUM LEVEL 139 MEQ/L (136-145); TROPONIN I < 0.02 NG/ML (< 0.10)
[2018-02-09 11:59] LABS: D-DIMER QUANT 1092.7 ng/ml (<500)
[2018-02-09] MEDS: ALBUTEROL SULFATE 2.5 MG/0.5 ML INH NEB SOLN INH (12:00)
[2018-02-09] MEDS: IPRATROPIUM 0.5MG/ALBUTEROL 2.5MG INH SOL UD 3ML (DUONEB)(J7620) NEB ×3 (12:00→20:42)
[2018-02-09 12:17] LABS: ALBUMIN 3.1 GM/DL (3.2-5.2); ALBUMIN/GLOBULIN RATIO 0.78 (1.00-1.93); ALKALINE PHOSPHATASE 105 U/L (45-117); ALT/SGPT 25 U/L (12-78); AST/SGOT 27 U/L (7-37); BILIRUBIN,DIRECT 0.1 MG/DL (0.0-0.2); BILIRUBIN,TOTAL 0.6 MG/DL (0.2-1.0); LIPASE 73 U/L (73-393); TOTAL PROTEIN 7.1 GM/DL (6.4-8.2)
[2018-02-09] MEDS ORDERED: ISOVUE-370 76% 100ML VIAL (Q9967) As Ordered (12:59)
[2018-02-09 14:33] LABS: ABG BASE EXCESS -0.9 (-2.0-2.0); ABG O2 SATURATION 98.7 % (95.0-99.0); ABG PARTIAL PRESSURE CO2 27.3 mmHg (35.0-45.0); ABG PARTIAL PRESSURE O2 107.3 mmHg (75.0-100.0); ABG STANDARD HCO3 23.7 MEQ/L (22.0-26.0); ABG TOTAL CO2 21.8 MEQ/L (23.0-31.0); ABG pH (ARTERIAL) 7.503 UNITS (7.350-7.450)
[2018-02-09] MEDS: predniSONE 10 MG TAB PO (15:30)
[2018-02-09] MEDS: LevoFLOXacin IV 500 MG in APPROPRIATE DILUENT 1 EA IV (15:57)
[2018-02-09] MEDS ORDERED: ALBUTEROL 90 MCG/ACT 8GM HFA INHALER INH (16:00)
[2018-02-09] MEDS ORDERED: ACETAMINOPHEN 325 MG TAB PO (16:00)
[2018-02-09] MEDS ORDERED: ALPRAZolam 0.25 MG TAB PO (16:00)
[2018-02-09] MEDS: TIOTROPIUM INHALER/CAPSULE (SPIRIVA) INH (16:00)
[2018-02-09] MEDS ORDERED: BISACODYL 10 MG SUPP PR (16:00)
[2018-02-09] MEDS ORDERED: hydrOXYzine 10 MG TAB PO (16:00)
[2018-02-09] MEDS: SYMBICORT 160/4.5MCG INHALER 6GM INH (20:42)
[2018-02-10] MEDS: IPRATROPIUM 0.5MG/ALBUTEROL 2.5MG INH SOL UD 3ML (DUONEB)(J7620) NEB ×5 (00:15→23:54)
[2018-02-10 05:35] LABS: HEMATOCRIT 35.9 % (36.0-47.0); MEAN CORPUSCULAR HEMOGLOBIN 30.8 pg (27.0-33.0); MEAN CORPUSCULAR HGB CONC 33.4 g/dl (32.0-36.5); MEAN CORPUSCULAR VOLUME 92.1 fl (80.0-96.0); PLATELET COUNT, AUTOMATED 287 10^3/uL (150-450); RED CELL DISTRIBUTION WIDTH 12.4 % (11.5-14.5); WHITE BLOOD COUNT 11.8 10^3/uL (4.0-10.0)
[2018-02-10 06:02] LABS: ESTIMATED AVERAGE GLUCOSE 120 MG/DL (60-110); HEMOGLOBIN A1c 5.8 %
[2018-02-10 06:11] LABS: ALBUMIN 2.7 GM/DL (3.2-5.2); ALBUMIN/GLOBULIN RATIO 0.77 (1.00-1.93); ALKALINE PHOSPHATASE 93 U/L (45-117); ALT/SGPT 32 U/L (12-78); ANION GAP 7 MEQ/L (8-16); AST/SGOT 23 U/L (7-37); BILIRUBIN,TOTAL 0.5 MG/DL (0.2-1.0); BLOOD UREA NITROGEN 13 MG/DL (7-18); CALCIUM LEVEL 10.3 MG/DL (8.8-10.2); CARBON DIOXIDE LEVEL 27 MEQ/L (21-32); CHLORIDE LEVEL 107 MEQ/L (98-107); CREATININE FOR GFR 0.61 MG/DL (0.55-1.30); GLOMERULAR FILTRATION RATE > 60.0 (>39); GLUCOSE, FASTING 122 MG/DL (70-100); MAGNESIUM LEVEL 2.1 MG/DL (1.8-2.4); SODIUM LEVEL 141 MEQ/L (136-145); THYROID STIMULATING HORMONE 0.112 uIU/ML (0.358-3.740); TOTAL PROTEIN 6.2 GM/DL (6.4-8.2)
[2018-02-10] MEDS: predniSONE 10 MG TAB PO ×3 (08:32→10:17)
[2018-02-10] MEDS: AZITHROMYCIN INJ 500 MG, VIAL MATE ADAPTER 1 EACH in D5W 250 ML IV (08:32)
[2018-02-10] MEDS: amLODIPine 5 MG TAB PO (08:32)
[2018-02-10] MEDS: ENOXAPARIN 40 MG/0.4 ML SYRINGE (J1650) SC (08:33)
[2018-02-10] MEDS: cefTRIAXone SOD 1 GM in D5W MINI-BAG PLUS 50 ML IV (09:00)
[2018-02-10] MEDS: SYMBICORT 160/4.5MCG INHALER 6GM INH (09:00)
[2018-02-10] MEDS: diphenhydrAMINE INJ 50MG/ML VIAL (J1200) IV (10:18)
[2018-02-10] MEDS: TIOTROPIUM INHALER/CAPSULE (SPIRIVA) INH (10:31)
[2018-02-10] MEDS ORDERED: ALBUTEROL 90 MCG/ACT 8GM HFA INHALER INH (12:00)
[2018-02-11 06:00] LABS: HEMATOCRIT 36.3 % (36.0-47.0); MEAN CORPUSCULAR HEMOGLOBIN 30.8 pg (27.0-33.0); MEAN CORPUSCULAR HGB CONC 33.1 g/dl (32.0-36.5); MEAN CORPUSCULAR VOLUME 93.1 fl (80.0-96.0); PLATELET COUNT, AUTOMATED 322 10^3/uL (150-450); RED CELL DISTRIBUTION WIDTH 12.6 % (11.5-14.5); WHITE BLOOD COUNT 10.7 10^3/uL (4.0-10.0)
[2018-02-11 06:29] LABS: ANION GAP 6 MEQ/L (8-16); BLOOD UREA NITROGEN 18 MG/DL (7-18); CALCIUM LEVEL 10.5 MG/DL (8.8-10.2); CARBON DIOXIDE LEVEL 28 MEQ/L (21-32); CHLORIDE LEVEL 110 MEQ/L (98-107); CREATININE FOR GFR 0.62 MG/DL (0.55-1.30); GLOMERULAR FILTRATION RATE > 60.0 (>39); GLUCOSE, FASTING 120 MG/DL (70-100); POTASSIUM SERUM 3.8 MEQ/L (3.5-5.1); SODIUM LEVEL 144 MEQ/L (136-145)
[2018-02-11] MEDS: ALBUTEROL SULFATE 2.5 MG/0.5 ML INH NEB SOLN NEB ×2 (08:00→15:31)
[2018-02-11] MEDS: IPRATROPIUM 0.5MG/ALBUTEROL 2.5MG INH SOL UD 3ML (DUONEB)(J7620) NEB (08:40)
[2018-02-11] MEDS: ENOXAPARIN 40 MG/0.4 ML SYRINGE (J1650) SC (08:54)
[2018-02-11] MEDS: AZITHROMYCIN INJ 500 MG, VIAL MATE ADAPTER 1 EACH in D5W 250 ML IV (08:54)
[2018-02-11] MEDS: amLODIPine 5 MG TAB PO (08:54)
[2018-02-11] MEDS: AZITHROMYCIN 250 MG TAB PO (10:36)
[2018-02-11] MEDS: cefTRIAXone SOD 1 GM in D5W MINI-BAG PLUS 50 ML IV (11:14)
[2018-02-11] MEDS: SODIUM CHLORIDE HYPERTONIC 3% 15ML NEB SOL INH ×2 (15:31→15:34)
[2018-02-11] MEDS: ACETAMINOPHEN TAB 650MG DOSE (2X325MG) PO (18:32)
[2018-02-12] MEDS: ALBUTEROL SULFATE 2.5 MG/0.5 ML INH NEB SOLN NEB ×2 (00:23→07:49)
[2018-02-12] MEDS: SODIUM CHLORIDE HYPERTONIC 3% 15ML NEB SOL INH ×2 (00:23→07:49)
[2018-02-12 08:10] LABS: HEMATOCRIT 36.5 % (36.0-47.0); HEMOGLOBIN 12.1 g/dl (12.0-15.5); MEAN CORPUSCULAR HGB CONC 33.2 g/dl (32.0-36.5); MEAN CORPUSCULAR VOLUME 93.6 fl (80.0-96.0); PLATELET COUNT, AUTOMATED 320 10^3/uL (150-450); RED CELL DISTRIBUTION WIDTH 12.6 % (11.5-14.5); WHITE BLOOD COUNT 8.6 10^3/uL (4.0-10.0)
[2018-02-12] MEDS: AZITHROMYCIN 250 MG TAB PO (08:15)
[2018-02-12] MEDS: amLODIPine 5 MG TAB PO (08:15)
[2018-02-12] MEDS: cefTRIAXone SOD 1 GM in D5W MINI-BAG PLUS 50 ML IV (08:15)
[2018-02-12] MEDS: ENOXAPARIN 40 MG/0.4 ML SYRINGE (J1650) SC (08:15)
[2018-02-12 08:37] LABS: ANION GAP 8 MEQ/L (8-16); BLOOD UREA NITROGEN 14 MG/DL (7-18); CALCIUM LEVEL 9.9 MG/DL (8.8-10.2); CARBON DIOXIDE LEVEL 27 MEQ/L (21-32); CHLORIDE LEVEL 110 MEQ/L (98-107); CREATININE FOR GFR 0.57 MG/DL (0.55-1.30); GLOMERULAR FILTRATION RATE > 60.0 (>39); GLUCOSE, FASTING 106 MG/DL (70-100); POTASSIUM SERUM 4.5 MEQ/L (3.5-5.1); SODIUM LEVEL 145 MEQ/L (136-145)
[2018-02-12 08:46] LABS: FREE T3 3.4 PG/ML (2.2-4.0)
[2018-02-12 08:46] LABS: FREE T4 1.45 NG/DL (0.76-1.46)
[2018-02-15 00:06] LABS: T3 REVERSE 22.7 ng/dL (9.2-24.1)
== END 2018-02-12 10:30 | disposition home or self-care (01) | DRG 194 ==
LOC: M MSPAV 02-11 16:05 → M ED 11:02 → M ED INP 15:55 → M PCU 22:15
DX: J18.9 Pneumonia, unspecified organism (principal); J44.0 Chronic obstructive pulmonary disease with (acute) lower respiratory infection; C34.90 Malignant neoplasm of unspecified part of unspecified bronchus or lung; C79.70 Secondary malignant neoplasm of unspecified adrenal gland; I10 Essential (primary) hypertension; E78.5 Hyperlipidemia, unspecified; E04.1 Nontoxic single thyroid nodule; F41.9 Anxiety disorder, unspecified; F17.210 Nicotine dependence, cigarettes, uncomplicated; Z79.899 Other long term (current) drug therapy; Z91.040 Latex allergy status; Z88.1 Allergy status to other antibiotic agents; Z88.2 Allergy status to sulfonamides; Z88.8 Allergy status to other drugs, medicaments and biological substances

== ENCOUNTER 2018-03-07 08:16 | Emergency (ER) | payer MEDICARE | END 2018-03-07 10:37 | disposition home or self-care (01) | LOC: M ED 08:16 | DX: S64.22XA Injury of radial nerve at wrist and hand level of left arm, initial encounter (principal); X58.XXXA Exposure to other specified factors, initial encounter; Y92.9 Unspecified place or not applicable; Y93.9 Activity, unspecified; Y99.9 Unspecified external cause status; R20.2 Paresthesia of skin; I10 Essential (primary) hypertension; Z85.118 Personal history of other malignant neoplasm of bronchus and lung; Z72.0 Tobacco use; Z79.899 Other long term (current) drug therapy; Z91.040 Latex allergy status; Z88.8 Allergy status to other drugs, medicaments and biological substances; Z88.2 Allergy status to sulfonamides | CPT/HCPCS: 93971 ==

== ENCOUNTER 2018-03-16 09:07 | Day surgery (SDC) | payer MEDICARE ==
[2018-03-16 10:12] LABS: INR 1.01; PROTHROMBIN TIME 13.4 SECONDS (12.1-14.4)
[2018-03-16] MEDS ORDERED: LIDOCAINE 2% INJ 100 MG/5 ML SDV (FOR ANES.) As Ordered (11:59)
[2018-03-16] MEDS ORDERED: fentaNYL 100 MCG/2 ML INJECTION (J3010) As Ordered (11:59)
[2018-03-16] MEDS ORDERED: PROPOFOL 200 MG/20 ML VIAL As Ordered (11:59)
[2018-03-16] MEDS ORDERED: MIDAZOLAM INJ 2 MG/2 ML VIAL (J2250) As Ordered (11:59)
[2018-03-16] MEDS: MUPIROCIN 2% OINT 22 GM TUBE TOP (12:25)
[2018-03-16] MEDS: HEPARIN SOD (PORCINE) 5000 UNITS/ML VIAL As Ordered (12:37)
[2018-03-16] MEDS: LIDOCAINE 1% SDV INJ 30 ML VIAL As Ordered (12:37)
[2018-03-16] MEDS ORDERED: ONDANSETRON 4MG/2ML VIAL (J2405) As Ordered (12:48)
[2018-03-16] MEDS ORDERED: KETOROLAC 60 MG/2 ML VIAL (J1885) As Ordered (12:48)
[2018-03-16] MEDS: BUPIVACAINE LIPOSOME/PF 1.3% 20 ML VIAL (13.3MG/ML)(EXPAREL) As Ordered (12:56)
== END 2018-03-16 15:05 | disposition home or self-care (01) ==
LOC: M SDC 09:07
DX: C34.11 Malignant neoplasm of upper lobe, right bronchus or lung (principal); Z45.2 Encounter for adjustment and management of vascular access device; I10 Essential (primary) hypertension; J44.9 Chronic obstructive pulmonary disease, unspecified; Z88.2 Allergy status to sulfonamides; F17.210 Nicotine dependence, cigarettes, uncomplicated
CPT/HCPCS: 36561

== ENCOUNTER → 2018-03-22 | Outpatient (CLI) | payer MEDICARE | LOC: M SMT 09:04 | DX: C34.11 Malignant neoplasm of upper lobe, right bronchus or lung (principal); I70.0 Atherosclerosis of aorta; M51.34 Other intervertebral disc degeneration, thoracic region | CPT/HCPCS: 71046 ==

== ENCOUNTER → 2021-03-30 | Outpatient (CLI) | payer MEDICARE ==
[~2021-03-30] MED LIST changes: +ALPR0.25 PO; +AMLO10TA PO; +AMLO1TAB24 PO; +AMLO1TAB25 PO; +AMLO25TA PO; +AZIT-12 PO; +BENA2CRE3 EXT; +CEFD300CAP PO; +CELE10TA PO; +COLA100C5 PO; +CYCL-707 PO; -GASTROGRAFIN SOLUTION 30ML (Q9963) As Ordered; +GASTROGRAFIN SOLUTION 30ML (Q9963) As Ordered ONE; +HYDR-3713 PO; +HYDR-643 PO; -ISOVUE-370 76% 100ML VIAL (Q9967) As Ordered; +ISOVUE-370 76% 100ML VIAL As Ordered ONE; +LEVO750T13 PO; +LIDO1CRE42 TOP; +LIPI20TA PO; +LIPI80TA PO; +TYLE325T5 PO; +VENTAER INH; +XANA0.25 PO
--- NOTE | 2021-03-30 15:05 | REP ---
INDICATION: LUNG CA COMPARISON: Multiple the latest 02/09/2018 CT angio of the chest TECHNIQUE: Standard helical technique after the intravenous administration of 100 cc Isovue 370 FINDINGS: Once again, note is made of multinodular goiter with thyroid calcifications status quo. There is no evidence of mediastinal or hilar adenopathy. There are no pleural or pericardial effusions. There is no significant change in appearance of the imaged osseous structures. Evaluation of the lung early shows a large bandlike parenchymal density in the right upper lobe abutting the major fissure in lieu of the spiculated right upper lobe mass. The spiculated nodule seen previously in the anterior segment of the left upper lobe is much smaller, however, remains spiculated. All other lung nodule seen on the prior exam have resolved. No additional nodules are identified. IMPRESSION: 1. Likely right upper lobe post radiation changes. This needs to be correlated clinically. 2. Smaller but still spiculated left upper lobe nodule, anterior segment, previously measuring 8 mm today measuring 5 mm. 3. Resolution of previously present multiple pulmonary nodules. 4. Other findings as described above. <Electronically signed by Nahum Morgan > 03/30/21 [id number]
--- NOTE | 2021-03-30 15:08 | REP ---
INDICATION: LUNG CA. COMPARISON: 01/18/2018 the latest prior TECHNIQUE: Standard helical technique after the intravenous administration of 100 cc Isovue 370. Oral bowel preparatory contrast was also administered prior to the exam. FINDINGS: The liver, gallbladder, spleen, pancreas, adrenal glands, and kidneys are unchanged. Once again, there is benign bilateral adrenal gland thickening. The abdominal aorta and para-aortic regions are unchanged. Calcific atherosclerotic changes again seen involving the abdominal aorta and common iliac arteries. There is no evidence of a mass or adenopathy. There is no evidence of free fluid or free air. There is no significant change in appearance of the bowel loops or the mesenteries. Bone window technique throughout the exam shows no significant change in appearance of the osseous structures. IMPRESSION: No significant change compared to the prior exam. No evidence of acute disease. <Electronically signed by Nahum Morgan > 03/30/21 [id number]
== END ==
LOC: M RAD 12:40
PROVIDERS: ATTEND Specialist
DX: C34.90 Malignant neoplasm of unspecified part of unspecified bronchus or lung (principal)
CPT/HCPCS: 71260; 74177; Q9963; Q9967

== ENCOUNTER → 2021-06-14 | Outpatient (CLI) | payer MEDICARE ==
[~2021-06-14] MED LIST changes: +CITA20TA6 PO; -GASTROGRAFIN SOLUTION 30ML (Q9963) As Ordered ONE; -ISOVUE-370 76% 100ML VIAL As Ordered ONE
== END ==
LOC: M PLARAD 08:02
PROVIDERS: ATTEND Specialist
DX: C34.81 Malignant neoplasm of overlapping sites of right bronchus and lung (principal)
CPT/HCPCS: 78815; A9552